=== PATIENT | female | born 1940 | race Caucasian/White ===

== ENCOUNTER 2018-03-08 02:13 | Inpatient (IN) | payer OTHER, MEDICARE ==
[2018-02-18 08:46] LABS: PLATELET COUNT, AUTOMATED 231 K/uL (150-450)
--- NOTE | 2018-02-18 08:55 | EKG ---
FACILITY: [facility] PATIENT NAME: ALBERTINA LUBIN : [id number] MR: [id number] V: [id number] EXAM DATE: ORDERING PHYSICIAN: ROSALIA CADENA TECHNOLOGIST: ALONZO Godoy Reason : PRE-OP Blood Pressure : / mmHG Vent. Rate : 066 BPM Atrial Rate : 066 BPM P-R Int : 164 ms QRS Dur : 066 ms QT Int : 406 ms P-R-T Axes : 073 081 073 degrees QTc Int : 425 ms Sinus rhythm Poor R wave progression anteriorly When compared with ECG of 30-JUL-2015 11:50, No significant change was found Confirmed by EVANGELIST PRIDE ([id number]) on 02/18/2018 12:51:12 PM Referred By: TAMMI Confirmed By:EVANGELIST PRIDE
[2018-03-07 16:43] LABS: INR 0.99
[~2018-03-08] VITALS: Ht 162.6 cm; Wt 61.4 kg
[2018-03-08] VITALS (12 sets, daily range): BP systolic 79–95; BP diastolic 52–61
[~2018-03-08 02:13] MED LIST: ALPR-429 PO; BUPR-128 PO; CHOL10005 PO; CYC10 PO; FOSA; HYDR-385 PO; LEVO-3 PO; LEVO88TA45 PO; LEVOTHY; PER PO; PRAM0.7512 PO; TRAZ50TA34 PO; ZOLM2.5T FT; [UNRECOGNIZED DRUG - REMARK]
[2018-03-08] MEDS: LIDOCAINE/SOD BICARB 8.4% SYR ID ONE ×2 (09:39→09:45)
[2018-03-08] MEDS ORDERED: PREGABALIN 75 MG CAPSULE PO ONE (09:45)
[2018-03-08] MEDS ORDERED: ROPIVACAINE/EPI/CLONIDINE/KET 50 ML SYRINGE INJ ONE ×2 (09:45)
[2018-03-08] MEDS ORDERED: VANCOMYCIN 1 GM ADDVIAL 1 GM in NS(*) 0.9% 250 ML ADDVAN BAG 250 ML IVPB ONE (09:45)
[2018-03-08] MEDS ORDERED: CELECOXIB 200 MG CAP PO ONE (09:45)
[2018-03-08] MEDS ORDERED: FAMOTIDINE 20 MG TAB PO ONE (09:45)
[2018-03-08] MEDS ORDERED: ACETAMINOPHEN 500 MG TAB PO ONE (09:45)
[2018-03-08] MEDS ORDERED: MIDAZOLAM 2 MG/2 ML VIAL IVP PRN (09:45)
[2018-03-08] MEDS ORDERED: NORMOSOL R SOLN(*) 1000 ML BAG 1,000 ML IV PRN (09:45)
[2018-03-08] MEDS ORDERED: TRANEXAMIC AC 1000 MG/10ML SDV 1,000 MG in DEXTROSE 5% 50 ML BAG 50 ML IV ONE (09:45)
[2018-03-08] MEDS ORDERED: ROPIVACAINE 0.2% 20 ML VIAL ONE (10:29)
[2018-03-08] MEDS ORDERED: fentaNYL CITR 100 MCG/2 ML AMP ONE ×3 (10:50→14:12)
[2018-03-08] MEDS ORDERED: ROCURONIUM BROM 10 MG/ML 10 ML ONE (11:45)
[2018-03-08] MEDS ORDERED: DEXAMETHASONE SOD PHOS 10MG/ML ONE (11:45)
[2018-03-08] MEDS ORDERED: PHENYLEPHRINE 10 MG/1 ML VIAL ONE (11:45)
[2018-03-08] MEDS ORDERED: PROPOFOL EMUL(*) 10MG/ML 20 ML 20 ML ONE (11:45)
[2018-03-08] MEDS ORDERED: ONDANSETRON 4 MG/2 ML VIAL ONE (11:45)
[2018-03-08] MEDS ORDERED: VANCOMYCIN 1 GM VIAL ONE (12:33)
[2018-03-08] MEDS ORDERED: SUGAMMADEX SOD 200 MG/2 ML SDV ONE (12:54)
[2018-03-08] MEDS ORDERED: MORPHINE SULFATE 30 MG PCA IV PRN (14:00)
[2018-03-08] MEDS ORDERED: diphenhydrAMINE 25 MG CAP PO PRN (14:00)
[2018-03-08] MEDS ORDERED: ACETAMINOPHEN 500 MG TAB PO PRN (14:00)
[2018-03-08] MEDS ORDERED: MAGNESIUM CITRATE 300 ML BTL PO PRN (14:00)
[2018-03-08] MEDS ORDERED: KCL/D5LR 20 MEQ/1000 ML PREMIX 1,000 ML IV PRN (14:00)
[2018-03-08] MEDS ORDERED: PROMETHAZINE 25 MG/ML 1 ML AMP IVP PRN (14:00)
[2018-03-08] MEDS ORDERED: FLUSH 10 ML SYR IVP PRN (14:00)
[2018-03-08] MEDS ORDERED: ONDANSETRON 4 MG/2 ML VIAL IVP PRN (14:00)
[2018-03-08] MEDS ORDERED: NALOXONE HCL 0.4 MG/ML VIAL IVP PRN (14:00)
--- NOTE | 2018-03-08 14:34 | RADIOLOGY IMAGING REPORT ---
FACILITY: [facility] PATIENT NAME: Stephanie Morse : 1940 MR: [id number] V: [id number] EXAM DATE: ORDERING PHYSICIAN: ROSALIA CADENA TECHNOLOGIST: Location: [facility] [place] Patient: Stephanie Morse : 1940 Visit/Account:[id number] Date of Sevice: 03/08/2018 Exam type: SHOULDER 1 VIEW LEFT History: S/P TOTAL REVERSE SHOULDER ARTHROPLASTY Comparison: CT left shoulder January 23, 2018. Findings: A single AP view of the left shoulder demonstrates a reverse left shoulder arthroplasty in good anato gifty alignment on this single AP view. Small amount soft tissue gas is seen along the superolateral a spect of the left shoulder IMPRESSION: 1. As above Report Dictated By: Mayra Whelan MD at 03/08/2018 2:25 PM Report E-Signed By: Mayra Whelan MD at 03/08/2018 2:26 PM WSN:[id number]
--- NOTE | 2018-03-08 14:35 | OPERATIVE REPORT 1 ---
EVENT DATE: March 08, 2018 SURGEON: Nic Lanza MD ANESTHESIOLOGIST: Mike Orosco MD ANESTHESIA: General. 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 POSTOPERATIVE DIAGNOSIS No evidence of rotator cuff function, possible infection, dislodged glenoid component with retained glenoid cage. PROCEDURE PERFORMED Removal of retained glenoid cage material and curettage of bone, deep cultures with stat gram stain, bone grafting of defects with revision glenoid and removal of proximal humeral component and revision of that component as well (03093). ESTIMATED BLOOD LOSS 75. IV FLUIDS 1500. TOURNIQUET TIME None. SPECIMENS None. COMPLICATIONS None. IMPLANTS USED Equinoxe Reverse Shoulder with 4 screws and locking caps, a 38 mm Glenosphere, + 0 mm humeral adaptor tray, a fixed angle torque defining screw kit and a 38 mm humeral liner +0. DESCRIPTION OF PROCEDURE The patient was brought into the operating room and placed on the OR table in the supine position. After obtaining adequate general anesthesia, she was placed in the beach chair position and her left shoulder was prepped and draped in the usual sterile fashion. The old incision was reopened deep in through the skin and subcutaneous tissue. There was abundant scarring and it was actually quite difficult to establish the subdeltoid plane. It seemed that the cephalic vein was quite a ways medial compared to where the previous approach was taken, but this was difficult to determine with certainty. I ended up dissecting it free and moving it over to the lateral side, but it did not appear that it remained competent through the case. Once we established the deltopectoral approach, we identified the conjoined tendon and placed a retractor. I palpated the axillary nerve and found it to be fairly deep which was a good thing. We then opened the anterior capsule which did have subscapularis in it but it was fairly hard to define. I do believe that there was some muscle in it. We did tag it. The superior aspect of the shoulder rotator cuff structure did not seem significant, but what was there was kept. After opening the shoulder joint, the fluid was clear. However, there was abundant debris within the shoulder, probably related to the loose glenoid, but we did have a concern about infection, so we cultured the specimens that were around and also sent the debris to the lab. We asked them a stat gram stain, which unfortunately took 1.25 hours. After preparing the humerus by removing the head and placing a cover cap, we directed our attention to the glenoid. The loose glenoid was removed. The three posterior pegs were still attached to the polyethylene, but the central peg was not. We removed the central peg by peripherally drilling a 1.5 mm drill around it multiple times and then removed it with the extraction device, curettaged the defects and bone, drilled those out a bit too where there was polyethylene and then bone grafted them. We also bone grafted the central peg using InterGro 2 cc with calcium granules. The Metaglene was then inserted and the screws were placed with the locking caps. We then inserted the Glenosphere which was a 38 mm. The screw was used to secure this in position. We then trialed a couple of different caps and it looked like the +0 adaptor tray would work fine with a 38 +0 liner. That was finally inserted and then we reduced it, ranged the shoulder finding no impingement. The wound was irrigated. Because the glenoid failed for uncertain reasons and also because of the abnormal tissue within the shoulder, I did use Vancomycin powder, but our stat gram stain was negative. Closure was undertaken by repairing the subscapularis with nonabsorbable suture, followed by repair of the deltopectoral interval with absorbable suture and then 3-0 Vicryl for the subcutaneous tissue, 4-0 Monocryl for skin. She was given a superficial skin covering and then dressing, followed by awakening and return to the PACU. CHRISTIAN
--- NOTE | 2018-03-08 15:42 | Hospitalist Consultation ---
History of Present Illness Requesting Physician Dr. Lanza Reason for Consult Medical Management Chief Complaint s/p left shoulder surgery History of Present Illness She was admitted s/p left shoulder surgery. It is reported the surgery went well and without complication. History Problems: (1) Depression Status: Chronic (2) Hypothyroidism Status: Chronic (3) Migraine headache Status: Chronic Home Meds Reported Medications Zolmitriptan (ZOMIG) 2.5 Mg Tab, 2.5 MG FT PRN, TAB 02/28/18 Cholecalciferol (Vitamin D3) (VITAMIN D3) 1,000 Unit Tablet, 1000 UNIT PO QDAY, TAB 02/28/18 Alprazolam (XANAX) 0.5 Mg Tablet, 1 TAB PO PRN PRN for ANXIETY, TAB 07/30/15 Hydrocodone Bit/Acetaminophen (HYDROCODON-ACETAMINOPHEN 5-325) 1 Each Tablet, 1 TAB PO QHS, #90 07/30/15 Pramipexole Di-Hcl (MIRAPEX) 0.75 Mg Tablet, 0.75 MG PO QHS 07/30/15 Trazodone Hcl (TRAZODONE HCL) 50 Mg Tablet, 50 MG PO QHS 07/30/15 Bupropion Hcl (WELLBUTRIN) 100 Mg Tablet, 450 MG PO QDAY, TAB 07/30/15 Levothyroxine Sodium (LEVOTHYROXINE SODIUM) 88 Mcg Tablet, 1 TAB PO QODAY, #30 07/30/15 Levothyroxine Sodium (LEVOTHYROXINE SODIUM) 100 Mcg Tablet, 1 TAB PO QODAY, #30 07/30/15 Allergies: Coded Allergies: No Known Drug Allergies (Verified , 07/30/15) Hx Smoking: Yes (45 PACK YRS, QUIT 1991) Smoking Status: Former Smoker Exposure to Second Hand Smoke?: No Caffeine Intake: Tea Caffeine/Cups Per Day: 1-2 CPD Hx Alcohol Use: Yes Alcohol Used: Beer Hx Substance Use Disorder: No Review of Systems All Systems Reviewed/Normal: Yes, Except as Noted Exam Vital Signs Vital Signs Date Time Temp Pulse Resp B/P (MAP) Pulse Ox O2 Delivery O2 Flow Rate FiO2 03/08/18 14:44 97.5 85 95/61 (72) 03/08/18 14:40 18 96 03/08/18 10:00 Room Air General Appearance: Alert, Awake, No Acute Distress, Afebrile Neuro: No Gross deficits Cardiovascular: Regular Rate and Rhythm Respiratory: No Respiratory Distress, Clear to Auscultation GI: Abd Soft and Non-Tender Psych: Alert & Oriented X3, Appropriate Mood & Affect Medical Decision Making Data Points Result Diagram: 03/08/18 1343 Assessment and Plan Problems: (1) Status post reverse arthroplasty of left shoulder Status: Acute Assessment & Plan: Followed by Dr. Lanza. (2) Hypothyroidism Status: Chronic Assessment & Plan: She is on chronic treatment with Levothyroxine rotating dose. She will take 100mcg 03/09, followed by 88mcg. (3) Migraine headache Status: Chronic Assessment & Plan: She is on Zomig as needed for migraines. (4) Depression Status: Chronic Assessment & Plan: She is on chronic treatment with Wellbutrin and Trazodone. Continue. Venous Thromboembolism Antithrombotics Is Pt On Any Antithrombotics?: No ROBERT BARRETT MANAGED CARE NURSE Mar 08, 2018 15:42
--- NOTE | 2018-03-08 16:11 | NUR ---
Occupational Therapy Impression Pt alert and agreeable to OT evaluation. VSS throughout tx. Tx completed supine in bed. Reviewed precautions/ther ex per TSA protocol/wear and fit of sling. Pt reporting pain at 06/14. Ice and positioning offered. Plan for session tomorrow to initiate ther ex post-op day one and review ADLs. Pt agreeable with plan. Denies further needs/concerns at this time. Occupational Therapy Goals Patient's Goal
[2018-03-08] MEDS ORDERED: oxyCODONE HCL 5 MG CAP PO PRN (19:10)
[2018-03-08] MEDS ORDERED: traZODone HCL 50 MG TAB PO SCH (21:00)
[2018-03-08] MEDS ORDERED: PRAMIPEXOLE DIHYDROCHL 0.25 MG PO SCH (21:00)
[2018-03-09] VITALS: BP 81/52
[2018-03-09 04:00] VITALS: BP 79/56
[2018-03-09 05:52] LABS: PLATELET COUNT, AUTOMATED 189 K/uL (150-450)
[2018-03-09] MEDS ORDERED: LEVOTHYROXINE SOD 0.1 MG TAB PO SCH (06:00)
[2018-03-09] MEDS ORDERED: OXYC5TAB38 PO (07:03)
[2018-03-09 07:21] VITALS: BP 100/64
--- NOTE | 2018-03-09 08:43 | NUR ---
Occupational Therapy Impression Pt. completed all Reverse TSA protocol exercises and education regarding UB dressing, sling use and shoulder precautions. Pt. provided with stephanie's for home use. Pt. is ready to d/c to home with OP PT. Pt. has appt. set up at [facility]. Occupational Therapy Goals Patient's Goal
[2018-03-09] MEDS ORDERED: buPROPion IR 100 MG TAB PO SCH (09:00)
--- NOTE | 2018-03-09 09:05 | Hospitalist Progress Note ---
Subjective Progress Notes Subjective Aside from O2 sats being low (84-85%) she is doing well with minimal pain. Up and around with minimal help. Physical Exam Vital Signs Date Time Temp Pulse Resp B/P (MAP) Pulse Ox O2 Delivery O2 Flow Rate FiO2 03/09/18 07:37 90 Room Air 2.0 03/09/18 07:21 98.2 80 16 100/64 (76) Intake and Output 03/09/18 07:00 Intake Total 2600 ml Balance 2600 ml Intake Oral 700 ml IV Total 1900 ml # Voids 1 General Appearance: Alert, Awake, No Acute Distress, Afebrile Cardiovascular: Regular Rate and Rhythm Respiratory: Clear to Auscultation Psych: Alert & Oriented X3, Appropriate Mood & Affect Result Diagram: 03/09/18 0519 Assessment and Plan Problems: (1) Status post reverse arthroplasty of left shoulder Status: Acute Assessment & Plan: Followed by Dr. Lanza. Will need to go home on O2 for a few days due to low sats on RA. Otherwise feels good. (2) Hypothyroidism Status: Chronic Assessment & Plan: She is on chronic treatment with Levothyroxine rotating dose. She will take 100mcg 03/09, followed by 88mcg. (3) Migraine headache Status: Chronic Assessment & Plan: She is on Zomig as needed for migraines. (4) Depression Status: Chronic Assessment & Plan: She is on chronic treatment with Wellbutrin and Trazodone. Continue. Time Spent on Plan of Care: < 30 min Exam Sepsis Risk: No Definite Risk SUSY KELLEY MD FACP Mar 09, 2018 09:05
[2018-03-09 09:17] VITALS: Ht 162.6 cm; Wt 61.4 kg
[2018-03-09 10:48] VITALS: BP 100/65
[2018-03-10] MEDS ORDERED: LEVOTHYROXINE SOD 0.088 MG TAB PO SCH (09:00)
== END 2018-03-09 12:20 | disposition home or self-care (01) | DRG 483 ==
LOC: OR 02:13 → MED 14:40
PROVIDERS: ADMIT Orthopaedic Surgery Hand Surgery; ATTEND Orthopaedic Surgery Hand Surgery
PROC: 0RPK0JZ Removal of Synthetic Substitute from Left Shoulder Joint, Open Approach (ICD-10-PCS; 2018-03-08)
PROC: 0RRK0JZ Replacement of Left Shoulder Joint with Synthetic Substitute, Open Approach (ICD-10-PCS; principal; 2018-03-08 10:34)
DX: T84.028A Dislocation of other internal joint prosthesis, initial encounter (principal); G25.81 Restless legs syndrome; F32.9 Major depressive disorder, single episode, unspecified; G43.909 Migraine, unspecified, not intractable, without status migrainosus; Z87.891 Personal history of nicotine dependence; E03.9 Hypothyroidism, unspecified; Z96.612 Presence of left artificial shoulder joint
CPT/HCPCS: 36415; 81001; 82040; 82247; 82310; 82374; 82435; 82565; 82947; 84075; 84132; 84155; 84295; 84443; 84450; 84460; 84520; 85014; 85018; 85025; 85610; 86850; 86900; 86901; 87070; 87073; 87088; 87176; 87205; 93005; 97165; J1100; J2250; J2370; J2405; J2704; J2795; J3010; J3370; J7060

== ENCOUNTER → 2018-05-02 | Outpatient (CLI) | payer OTHER, MEDICARE ==
[2018-03-09 09:17] VITALS: BMI 23.2
[~2018-05-02] MED LIST changes: +OXYC5TAB38 PO
--- NOTE | 2018-05-06 17:07 | RT HOLTER TEST ---
FACILITY: [facility] - [place] PATIENT NAME: ALBERTINA LUBIN : [id number] MR: [id number] V: [id number] EXAM DATE: ORDERING PHYSICIAN: MILLI PEREZ TECHNOLOGIST: Hemal Hairston-up date: 2018-05-02 10:18:00 Duration: 47:59:00 Test Indications: TACHYARRYTHMIA Medications: SEE LIST 036136 QRS complexes 151 Ventricular ectopics which represent <1 % of total QRS comp. 142 Supraventricular ectopics which represent <1 % of total QRS comp. * Paced QRS complexes which represent % of total QRS comp. VENTRICULAR ECTOPY 147 Isolated 0 Bigeminal Cycles 2 Couplets 0 Runs 0 Beats in Runs * Beats LONGEST at * BPM at :: -- * Beats FASTEST at * BPM at :: -- SUPRAVENTRICULAR ECTOPY 118 Isolated 4 Couplets 3 Runs 16 Beats in Runs 10 Beats LONGEST at 141 BPM at 03:22:59 2018-05-03 3 Beats FASTEST at 192 BPM at 08:13:21 2018-05-04 HEART RATES 59 MIN at 01:16:11 2018-05-04 83 AVG 113 MAX at 08:02:43 2018-05-04 LONGEST RR 1.368 secs at 06:12:52 2018-05-04 S-T LEVELS Channel 1 -12.800 mm MIN at 10:18:00 2018-05-02 -12.800 mm MAX at 10:18:00 2018-05-02 Channel 3 -12.800 mm MIN at 10:18:00 2018-05-02 -12.800 mm MAX at 10:18:00 2018-05-02 Rare ventricular ectopy with two couplets. No runs were recorded. Rare supraventricular ectopy with a few couplets and a few short runs of supraventrciular tachycardia (maximum ten beats). No pauses were recorded. Confirmed by EVANGELIST PRIDE ([id number]) on 05/06/2018 5:06:39 PM Referred By: Overread By: EVANGELIST PRIDE
== END ==
LOC: RESP 08:22
PROVIDERS: ATTEND Nurse Practitioner Family
DX: R00.0 Tachycardia, unspecified (principal)
CPT/HCPCS: 93225; 93226

== ENCOUNTER → 2018-09-23 | Outpatient (CLI) | payer OTHER, MEDICARE ==
[2018-03-09 09:17] VITALS: BMI 23.2
[2018-09-16 15:02] LABS: PLATELET COUNT, AUTOMATED 208 K/uL (150-450)
[~2018-09-23] MED LIST changes: -TRAZ50TA34 PO; +TRAZ50TA52 PO
== END ==
LOC: RAD 08:00 → EDSTATUS 11-01 10:00
PROVIDERS: ATTEND Orthopaedic Surgery Hand Surgery
DX: Z01.812 Encounter for preprocedural laboratory examination (principal); M25.511 Pain in right shoulder; M19.011 Primary osteoarthritis, right shoulder; F32.9 Major depressive disorder, single episode, unspecified; E07.9 Disorder of thyroid, unspecified; G43.909 Migraine, unspecified, not intractable, without status migrainosus
CPT/HCPCS: 36415; 81001; 82040; 82247; 82310; 82374; 82435; 82565; 82947; 84075; 84132; 84155; 84295; 84443; 84450; 84460; 84520; 85025; 87088